=== PATIENT | female | born 1990 | race Caucasian/White ===

== ENCOUNTER 2016-04-20 18:45 | Emergency (ER) | payer OTHER ==
[~2016-04-20] VITALS: Ht 165.1 cm; Wt 62.4 kg
[~2016-04-20 18:45] MED LIST: MULT-506 PO
[2016-04-20 19:05] VITALS: TEMP 36.9; Ht 165.1 cm; Wt 62.4 kg
[2016-04-20] MEDS ORDERED: SODIUM CHLORIDE 0.9% 1000ML 1,000 ML IV STA (20:25)
[2016-04-20 20:42] LABS: URINE APPEARANCE CLEAR (CLEAR); URINE BILIRUBIN NEG (NEG); URINE COLOR YELLOW; URINE EPITHELIAL CELL AUTO >30 /lpf (0-5); URINE NITRITE NEG (NEG); URINE SPECIFIC GRAVITY 1.014 (1.000-1.030); UROBILINOGEN NEG (NEG); ZZUR CULT IF INDIC CLEAN CATCH YES
[2016-04-20 20:49] LABS: MANUAL MICROSCOPIC REQUIRED? NO; REVIEW REQ? NO
--- NOTE | 2016-04-20 20:57 | EMERGENCY ROOM VISIT NOTE ---
History Report prepared by Johana: Rosetta Bentley Under the Supervision of: Dr. Harman Goldman M.D. First contact with patient: 20:21 Chief Complaint: FLANK PAIN Stated Complaint: WEAK, LOW BACK PAIN, RT SIDE PAIN, HARD TO BREATH History of Present Illness The patient is a 25 year old female who presents to the Emergency Room with complaints of worsening RLQ abdominal pain for the past couple of days. She states that her pain has been present, but worsened today. She describes her current pain as sharp and rates it as a 6/10 in severity. The patient took a test last night that was positive. Her LNMP was March 14. She states "I feel crampy and pressure, like I'm getting my period." The patient is /A0. She is feeling nauseated. Her pain is worsened with palpation. She denies vaginal bleeding, urinary symptoms, pain or swelling in her legs, fever, vomiting, recent injury, and any previous abdominal surgeries. She has not taken anything for her pain. Source of History: patient Onset: a couple of days ago Position: abdomen (RLQ) Symptom Intensity: 6/10 Quality: sharp Timing: worsening Modifying Factors (Worsening): other (palpation) Associated Symptoms: + nausea, No fevers, No urinary symptoms, No vomiting Review of Systems See HPI for pertinent positives & negatives. A total of 10 systems reviewed and were otherwise negative. Past Medical & Surgical Medical Problems: (1) Normal labor Family History No pertinent history stated. Social History Smoking Status: Current Every Day Smoker Marital Status: in relationship Housing Status: lives with family Current/Historical Medications Scheduled Cephalexin Monohydrate (Keflex), 500 MG PO TID Allergies Coded Allergies: No Known Allergies (Unverified , 04/20/16) Physical Exam Vital Signs Date Time Temp Pulse Resp B/P Pulse Ox O2 Delivery O2 Flow Rate FiO2 04/20/16 22:49 96 18 109/75 99 04/20/16 19:05 36.9 119 18 131/81 99 Room Air Physical Exam GENERAL: Patient is well appearing and in no acute distress. HEENT: No acute trauma, normocephalic atraumatic, mucous membranes moist, no nasal congestion, no scleral icterus. NECK: No stridor, no adenopathy, no meningismus, trachea is midline. LUNGS: No dyspnea. Clear to auscultation and equal bilaterally. No wheeze, no rhonchi. HEART: Regular rate and rhythm. No murmurs, rubs, gallops appreciated. ABDOMEN: Soft, vague suprapubic tenderness to palpation, bowel sounds positive, no masses appreciated, no peritonitis. BACK: No midline tenderness, no CVA tenderness EXTREMITIES: Normal motion all extremities, no cyanosis, no edema. NEUROLOGIC: Alert and oriented, no acute motor or sensory deficits, no focal weakness, cranial nerves grossly intact. SKIN: No rash, no jaundice, no diaphoresis. Medical Decision & Procedures ER Provider Diagnostic Interpretation: Radiology results and stated below per my review and radiologist interpretation: PELVIC ULTRASOUND, TRANSABDOMINAL AND TRANSVAGINAL HISTORY: Pain pelvic pain, early COMPARISON: None. FINDINGS: Uterus: Retroverted configuration. There is small cystic density at the level of the uterine fundus. This potentially represents an early intrauterine gestational sac. It is too small to quantify viability. Estimated age based on gestational sac measurements is 5 weeks. Endometrial stripe: 12 mm Right ovary: 2.8 cm with normal vascular flow Left ovary: 3.1 cm with normal vascular flow Miscellaneous:No pelvic free fluid. IMPRESSION: 1. Retroflexed uterus.. 2. Small cystic region within the uterine fundus 3. This potentially represents a very early intrauterine gestational sac, although given the estimated 5 weeks gestational age is too small to evaluate viability. 4. This study should be repeated in one to 2 weeks to confirm viability 5. Otherwise negative study Electronically signed by: Michael Cadena M.D. 04/20/2016 9:56 PM Dictated Date/Time: 04/20/2016 9:53 PM Laboratory Results 04/20/16 20:36 Test 04/20/16 20:17 04/20/16 20:36 Urine Color YELLOW Urine Appearance CLEAR (CLEAR) Urine pH 6.0 (4.5-7.5) Urine Specific [place] 1.014 (1.000-1.030) Urine Protein NEG (NEG) Urine Glucose (UA) NEG (NEG) Urine Ketones NEG (NEG) Urine Occult Blood NEG (NEG) Urine Nitrite NEG (NEG) Urine Bilirubin NEG (NEG) Urine Urobilinogen NEG (NEG) Urine Leukocyte Esterase MODERATE (NEG) Urine WBC (Auto) 10-30 /hpf (0-5) Urine RBC (Auto) 10-30 /hpf (0-4) Urine Hyaline Casts (Auto) 5-10 /lpf (0-5) Urine Epithelial Cells (Auto) >30 /lpf (0-5) Urine Bacteria (Auto) 1+ (NEG) Urine Test POS (NEG) Red Blood Count 4.93 M/uL (4.2-5.4) Mean Corpuscular Volume 83.2 fL (80-100) Mean Corpuscular Hemoglobin 29.0 pg (25-34) Mean Corpuscular Hemoglobin Concent 34.9 g/dl (32-36) RDW Standard Deviation 41.4 fL (36.4-46.3) RDW Coefficient of Variation 13.7 % (11.5-14.5) Mean Platelet Volume 10.3 fL (7.4-10.4) Human Chorionic Gonadotropin, Quant 961 mIU/mL Laboratory results as reviewed by me. Medications Administered Medications (Trade) Dose Ordered Sig/Jaime Route Start Time Stop Time Status Last Admin Dose Admin Sodium Chloride (Nss 1000ml) 1,000 ml @ 999 mls/hr Q1H1M STAT IV 04/20/16 20:25 04/20/16 21:25 DC 04/20/16 20:25 999 MLS/HR Cephalexin Monohydrate (Keflex Cap) 500 mg NOW ONCE PO 04/20/16 22:45 04/20/16 22:46 DC 04/20/16 22:45 500 MG ED Course 2020: The patient was evaluated in room C2A. A complete history and physical exam was performed. 2024: NSS 1000 ml @ 999 mls/hr IV 2231: I reassessed the patient at this time. She is feeling better and resting comfortably. I discussed the results and treatment plan with the patient. I answered all pertaining questions that she had. She expressed understanding and verbalized agreement. The patient will be discharged home. Medical Decision Differential: Appendicitis, Ovarian Torsion, PID, Tubo-ovarian Abscess, Intrauterine , Ectopic , Endometriosis, amongst other pathologies entertained. 25 yr old female notes she is at most a few weeks and is having lower abdominal discomfort. Denies vaginal bleeding/discharge. No fevers, vomiting nor other symptoms. Very low HCG today. US with IUP though too early to categorize further. No evidence ectopic at this time. We discussed the possibility of this being early miscarriage. Discussed RTED immediately if severe pain, passing out, heavy bleeding, etc. She was instructed to follow up with OB in 3 days for repeat BHCG. Aware she can always return to ED if concerns. Stable and wishing to get home. She does not have appendicitis by examination. Symptoms not consistent with torsion nor PID. There is some questionable UTI thus with and discomfort will treat with keflex. Impression Primary Impression: Pelvic pain affecting in first trimester, antepartum Scribe Attestation The scribe's documentation has been prepared under my direction and personally reviewed by me in its entirety. I confirm that the note above accurately reflects all work, treatment, procedures, and medical decision making performed by me. Departure Information Dispostion Home / Self-Care Prescriptions Cephalexin Monohydrate (KEFLEX) 500 Mg Cap 500 MG PO TID, #15 CAP Prov: Harman Goldman M.D. 04/20/16 Referrals No Doctor, Assigned (PCP) Forms HOME CARE DOCUMENTATION FORM, IMPORTANT VISIT INFORMATION Patient Instructions My [facility] Additional Instructions Your US showed a very early . It is too early to tell whether this is a miscarriage or just very early . You will need repeat Blood Testing in the next 3-4 days to evaluate whether this is going up. If you have bleeding, increased pain you may be having a miscarriage. Return immediately if you have severe pain, heavy bleeding, passing out or other concerns. We are here to help. Call you primary provider tomorrow to set up further testing.
[2016-04-20 21:27] LABS: MEAN CELL VOLUME 83.2 fL (80-100); MEAN CORPUSCULAR HGB CONC 34.9 g/dl (32-36); MEAN PLATELET VOLUME 10.3 fL (7.4-10.4); PLATELET COUNT 281 K/uL (130-400); RED BLOOD COUNT 4.93 M/uL (4.2-5.4); WHITE BLOOD COUNT 11.52 K/uL (4.8-10.8)
--- NOTE | 2016-04-20 21:57 | DIAGNOSTIC IMAGING REPORT ---
PELVIC ULTRASOUND, TRANSABDOMINAL AND TRANSVAGINAL HISTORY: Pain pelvic pain, early COMPARISON: None. FINDINGS: Uterus: Retroverted configuration. There is small cystic density at the level of the uterine fundus. This potentially represents an early intrauterine gestational sac. It is too small to quantify viability. Estimated age based on gestational sac measurements is 5 weeks. Endometrial stripe: 12 mm Right ovary: 2.8 cm with normal vascular flow Left ovary: 3.1 cm with normal vascular flow Miscellaneous:No pelvic free fluid. IMPRESSION: 1. Retroflexed uterus.. 2. Small cystic region within the uterine fundus 3. This potentially represents a very early intrauterine gestational sac, although given the estimated 5 weeks gestational age is too small to evaluate viability. 4. This study should be repeated in one to 2 weeks to confirm viability 5. Otherwise negative study Electronically signed by: Michael Cadena M.D. 04/20/2016 9:56 PM Dictated Date/Time: 04/20/2016 9:53 PM
[2016-04-20] MEDS ORDERED: CEPH500C2 PO (22:36)
[2016-04-20] MEDS ORDERED: CEPHALEXIN MONOHYDRATE 250 MG CAP PO ONE (22:45)
[2016-04-20 22:49] VITALS: BP 109/75; PULSE 96; O2SAT 99
--- NOTE | 2016-04-23 18:23 | Pharmacy Progress Note ---
ED Pharmacist Culture FollowUp Date of Service: Apr 23, 2016. Called patient regarding Gardnerella in urine culture. Patient reports having had an appointment with her GRAIN CLEANER AND TRANSFER OPERATOR today. They did obtain a urine sample and per Serg, planned to culture the sample. No further intervention required at this time. Case discussed with Dr. Anderson.
== END 2016-04-20 22:50 | disposition home or self-care (01) ==
LOC: C.EDB 18:46 → C.EDC 22:50
DX: O26.891 Other specified pregnancy related conditions, first trimester (principal); O99.331 Smoking (tobacco) complicating pregnancy, first trimester; R10.2 Pelvic and perineal pain; F17.200 Nicotine dependence, unspecified, uncomplicated; Z3A.01 Less than 8 weeks gestation of pregnancy

== ENCOUNTER → 2016-04-23 | Outpatient (CLI) | payer OTHER ==
[~2016-04-23] MED LIST changes: +CEPH500C2 PO; -MULT-506 PO
== END ==
LOC: C.LAB1850 07:48
PROVIDERS: ATTEND Obstetrics & Gynecology
DX: O26.899 Other specified pregnancy related conditions, unspecified trimester (principal)

== ENCOUNTER → 2016-04-23 | Outpatient (CLI) | payer OTHER ==
[~2016-04-23] MED LIST changes: +MULT-506 PO
[2016-04-23 18:37] LABS: URINE APPEARANCE CLEAR (CLEAR); URINE BILIRUBIN NEG (NEG); URINE COLOR YELLOW; URINE EPITHELIAL CELL AUTO >30 /lpf (0-5); URINE NITRITE NEG (NEG); URINE SPECIFIC GRAVITY 1.024 (1.000-1.030); UROBILINOGEN POS (NEG)
[2016-04-23 18:42] LABS: MANUAL MICROSCOPIC REQUIRED? NO; REVIEW REQ? NO
== END | disposition home or self-care (01) ==
LOC: C.LABSPEC 17:26
PROVIDERS: ATTEND Obstetrics & Gynecology
DX: O26.899 Other specified pregnancy related conditions, unspecified trimester (principal)

== ENCOUNTER → 2016-05-18 | Outpatient (CLI) | payer OTHER ==
[~2016-05-18] MED LIST changes: -MULT-506 PO
[2016-05-18 18:26] LABS: URINE APPEARANCE CLEAR (CLEAR); URINE BILIRUBIN NEG (NEG); URINE COLOR YELLOW; URINE EPITHELIAL CELL AUTO >30 /lpf (0-5); URINE NITRITE NEG (NEG); URINE PH 6.5 (4.5-7.5); UROBILINOGEN NEG (NEG)
[2016-05-18 18:27] LABS: MANUAL MICROSCOPIC REQUIRED? NO; REVIEW REQ? NO
== END | disposition home or self-care (01) ==
LOC: C.LABSPEC 16:53
PROVIDERS: ATTEND Obstetrics & Gynecology
DX: Z34.83 Encounter for supervision of other normal pregnancy, third trimester (principal)

== ENCOUNTER → 2016-05-26 | Outpatient (CLI) | payer OTHER ==
[2016-05-29 11:40] LABS: CHLAMYDIA TRACH RNA*** NOT DETECTED (NOT DETECTED); GC (NEIS GONORRHOEAE)RNA** NOT DETECTED (NOT DETECTED)
== END | disposition home or self-care (01) ==
LOC: C.LABSPEC 14:10
PROVIDERS: ATTEND Obstetrics & Gynecology
DX: Z34.91 Encounter for supervision of normal pregnancy, unspecified, first trimester (principal)

== ENCOUNTER → 2016-06-09 | Outpatient (CLI) | payer OTHER ==
[2016-06-09 16:27] LABS: BASO % 0.1 %; BASO ABS # 0.01 K/uL (0-0.2); COMPLETE YES; EOS % 0.6 %; HEMATOCRIT 37.7 % (37-47); IG% 0.3 %; LYMPH % 26.1 %; LYMPH ABS # 2.07 K/uL (1.2-3.4); MEAN CELL VOLUME 81.8 fL (80-100); MEAN CORPUSCULAR HEMOGLOBIN 29.3 pg (25-34); MEAN CORPUSCULAR HGB CONC 35.8 g/dl (32-36); MEAN PLATELET VOLUME 9.9 fL (7.4-10.4); MONO % 3.3 %; NEUT % 69.6 %; PLATELET COUNT 263 K/uL (130-400); RED BLOOD COUNT 4.61 M/uL (4.2-5.4); WHITE BLOOD COUNT 7.93 K/uL (4.8-10.8)
== END | disposition home or self-care (01) ==
LOC: C.LAB1850 15:40
PROVIDERS: ATTEND Obstetrics & Gynecology
DX: Z34.91 Encounter for supervision of normal pregnancy, unspecified, first trimester (principal)

== ENCOUNTER → 2016-07-07 | Outpatient (CLI) | payer OTHER ==
[2016-07-07 18:09] LABS: GTGD 50 Grams
== END | disposition home or self-care (01) ==
LOC: C.LAB1850 15:30
PROVIDERS: ATTEND Obstetrics & Gynecology
DX: Z34.82 Encounter for supervision of other normal pregnancy, second trimester (principal)

== ENCOUNTER → 2016-09-29 | Outpatient (CLI) | payer OTHER ==
[2016-09-29 16:37] LABS: HEMATOCRIT 32.9 % (37-47)
[2016-09-29 16:56] LABS: GTGD 50 Grams
== END | disposition home or self-care (01) ==
LOC: C.LAB1850 15:50
PROVIDERS: ATTEND Obstetrics & Gynecology
DX: Z34.82 Encounter for supervision of other normal pregnancy, second trimester (principal)

== ENCOUNTER → 2016-09-29 | Outpatient (CLI) | payer OTHER ==
[2016-09-29 18:17] LABS: URINE APPEARANCE CLOUDY (CLEAR); URINE BILIRUBIN NEG (NEG); URINE COLOR YELLOW; URINE EPITHELIAL CELL AUTO >30 /lpf (0-5); URINE NITRITE NEG (NEG); URINE SPECIFIC GRAVITY 1.026 (1.000-1.030); UROBILINOGEN NEG (NEG)
[2016-09-29 18:24] LABS: MANUAL MICROSCOPIC REQUIRED? NO; REVIEW REQ? YES
== END | disposition home or self-care (01) ==
LOC: C.LABSPEC 17:34
PROVIDERS: ATTEND Obstetrics & Gynecology
DX: Z34.82 Encounter for supervision of other normal pregnancy, second trimester (principal)

== ENCOUNTER → 2016-11-24 | Outpatient (CLI) | payer OTHER | END | disposition home or self-care (01) | LOC: C.LABSPEC 16:00 | PROVIDERS: ATTEND Obstetrics & Gynecology | DX: Z34.83 Encounter for supervision of other normal pregnancy, third trimester (principal) ==

== ENCOUNTER 2016-12-07 19:45 | Emergency (ER) | payer OTHER ==
[~2016-12-07] VITALS: Ht 165.1 cm; Wt 68.6 kg
[2016-12-07 19:55] VITALS: TEMP 37; Ht 165.1 cm; Wt 68.6 kg
--- NOTE | 2016-12-07 20:17 | EMERGENCY ROOM VISIT NOTE ---
History Report prepared by Johana: Daniel Talley Under the Supervision of: Dr. John Wayne M.D. First contact with patient: 20:06 Chief Complaint: FLANK PAIN Stated Complaint: SIDE BACK PAIN, 38 WKS PREG-PER LD EVAL IN ER History of Present Illness The patient is a 26 year old female who presents to the Emergency Room with complaints of constant right sided flank pain that started at 0100. She rates her pain as a 7/10 in severity. She states that her pain is worsened with sitting up and relieved with laying down. The patient also reports she is have mid lower back pain. The patient states that she feels as if she is having contractions at times, but is unsure. The patient does not think that her water broke. She reports she is 38 weeks and reports that this is her 3rd time . The patient states that her last ultrasound was two weeks ago and the baby was low. The patient states that she has been urinating frequently, but admits she has been drinking a lot of fluids. She states that she has a history of a kidney stone, which she admits is similar to her current symptoms. Source of History: patient Onset: 0100 Position: other (right flank) Symptom Intensity: 7/10 Timing: constant Associated Symptoms: + back pain Review of Systems All systems have been listed, reviewed, and are negative other than those previously mentioned. Please see Additional Medical History Sheet. Past Medical & Surgical Medical Problems: (1) Normal labor (2) Uterine contractions Family History Cancer Social History Smoking Status: Never Smoker Smokeless Tobacco Use: No Alcohol Use: none Drug Use: none Marital Status: in relationship Housing Status: lives with family Occupation Status: unemployed Current/Historical Medications No Active Prescriptions or Reported Meds Allergies Coded Allergies: No Known Allergies (Unverified , 12/07/16) Physical Exam Vital Signs Date Time Temp Pulse Resp B/P (MAP) Pulse Ox O2 Delivery O2 Flow Rate FiO2 12/07/16 22:29 102 18 113/67 100 Room Air 12/07/16 21:34 108 18 122/76 98 Room Air 12/07/16 19:55 37.0 113 22 135/83 98 Room Air Physical Exam GENERAL: Patient awake, alert, oriented x 3. Patient follows commands. Patient does not appear toxic. Patient is adequately hydrated and well- nourished. Patient is in mild distress. SKIN: No erythema, pallor, cyanosis or rash HEENT: Normal head, pupils equal, reactive to light and accommodation. Ears normal. Oral cavity and posterior pharynx appear normal. Neck: Without adenopathy, no neck vein distention. LUNGS: Clear to auscultation. No wheezes, no rales, no rhonchi. HEART: No murmurs. No gallops. No rubs ABDOMEN: No masses, no rebound, no hepatomegaly or splenomegaly. BACK: Slight tenderness to right CVA area. No bruising or other signs of trauma. EXTREMITIES: No signs of trauma. No pedal or pretibial edema. No calf or thigh tenderness. NEUROLOGIC: Cranial nerves II-XII within normal limits. No gross motor sensory function deficits. Medical Decision & Procedures ER Provider Diagnostic Interpretation: Radiology results as stated below per my review and radiologist interpretation: RENAL ULTRASOUND HISTORY: right flank pain 38 weeks preg past kidney stone COMPARISON: Renal ultrasound 04/13/2013. FINDINGS: Right kidney: 12.0 cm. Mild hydronephrosis. Normal corticomedullary differentiation and cortical thickness. Left kidney: 12.2 cm. No hydronephrosis. Normal corticomedullary differentiation and cortical thickness. Bladder: Decompressed and not well visualized. Miscellaneous: heart rate was 150 bpm. IMPRESSION: 1. Mild right hydronephrosis. 2. Normal left kidney. 3. No renal stones identified. 4. heart rate was 150 bpm. Electronically signed by: Mckinley Hernadez M.D. 12/07/2016 9:30 PM Dictated Date/Time: 12/07/2016 9:29 PM Laboratory Results 12/07/16 20:33 12/07/16 20:33 Test 12/07/16 20:30 12/07/16 20:33 Urine Color YELLOW Urine Appearance CLOUDY (CLEAR) Urine pH 6.5 (4.5-7.5) Urine Specific [place] 1.020 (1.000-1.030) Urine Protein TRACE (NEG) Urine Glucose (UA) TRACE (NEG) Urine Ketones 1+ (NEG) Urine Occult Blood NEG (NEG) Urine Nitrite NEG (NEG) Urine Bilirubin NEG (NEG) Urine Urobilinogen POS (NEG) Urine Leukocyte Esterase LARGE (NEG) Urine WBC (Auto) >30 /hpf (0-5) Urine RBC (Auto) 0-4 /hpf (0-4) Urine Hyaline Casts (Auto) 1-5 /lpf (0-5) Urine Epithelial Cells (Auto) >30 /lpf (0-5) Urine Bacteria (Auto) 2+ (NEG) Red Blood Count 3.95 M/uL (4.2-5.4) Mean Corpuscular Volume 81.5 fL (80-100) Mean Corpuscular Hemoglobin 26.6 pg (25-34) Mean Corpuscular Hemoglobin Concent 32.6 g/dl (32-36) RDW Standard Deviation 41.0 fL (36.4-46.3) RDW Coefficient of Variation 13.7 % (11.5-14.5) Mean Platelet Volume 9.8 fL (7.4-10.4) Anion Gap 8.0 mmol/L (3-11) Est Creatinine Clear Calc Drug Dose 140.7 ml/min Estimated GFR () 147.9 Estimated GFR (Non- 127.6 BUN/Creatinine Ratio 6.5 (10-20) Calcium Level 9.0 mg/dl (8.5-10.1) Laboratory results as stated above per my review. ED Course 2007: Past medical records reviewed. The patient was evaluated in room C03. A complete history and physical examination was performed. 2224: I reevaluated the patient and updated her on her results. She told me she feels as if she is having contractions. I discussed her treatment plan and she agrees. 2230: I discussed the patient's case with Nas [facility] [employer]. She understands the patient's condition and agrees to accept the patient. The patient will be further evaluated. Medical Decision Nurses notes reviewed. Medical history sheet reviewed. Differential diagnosis includes but is not limited to: renal colic, , UTI, pyelonephritis. The patient is here with right flank pain similar to what she has experienced in the past with a kidney stone. She is currently 38 weeks and initially denied any contractions. Urinalysis ensued. The patient does have significant white cells in her urine. Ultrasound does not reveal a stone. The patient does have mild right hydronephrosis. While here the patient developed contractions. Therefore she was sent upstairs for monitoring. I discussed care with the clinical veterinarian who will start antibiotics. Medication Reconcilliation Current Medication List: was personally reviewed by me Blood Pressure Screening Patient's blood pressure: Normal blood pressure Consults Time Called: 2229 Consulting Physician: Dr. Lovell [facility] Returned Call: 2229 I discussed the patient's case with Nas [facility] [employer]. She understands the patient's condition and agrees to accept the patient. The patient will be further evaluated. Impression Primary Impression: Pyelonephritis Additional Impression: Scribe Attestation The scribe's documentation has been prepared under my direction and personally reviewed by me in its entirety. I confirm that the note above accurately reflects all work, treatment, procedures, and medical decision making performed by me. Departure Information Dispostion Being Evaluated By Hospitalist Prescriptions No Active Prescriptions or Reported Meds Referrals No Doctor, Assigned (PCP) Patient Instructions My [facility] Problem Qualifiers
[2016-12-07 20:48] LABS: HEMATOCRIT 32.2 % (37-47); MEAN CELL VOLUME 81.5 fL (80-100); MEAN CORPUSCULAR HEMOGLOBIN 26.6 pg (25-34); MEAN CORPUSCULAR HGB CONC 32.6 g/dl (32-36); MEAN PLATELET VOLUME 9.8 fL (7.4-10.4); PLATELET COUNT 224 K/uL (130-400); RED BLOOD COUNT 3.95 M/uL (4.2-5.4); WHITE BLOOD COUNT 13.84 K/uL (4.8-10.8)
[2016-12-07 20:59] LABS: URINE APPEARANCE CLOUDY (CLEAR); URINE BILIRUBIN NEG (NEG); URINE COLOR YELLOW; URINE EPITHELIAL CELL AUTO >30 /lpf (0-5); URINE NITRITE NEG (NEG); URINE PH 6.5 (4.5-7.5); UROBILINOGEN POS (NEG); ZZUR CULT IF INDIC CLEAN CATCH YES
[2016-12-07 21:02] LABS: MANUAL MICROSCOPIC REQUIRED? NO; REVIEW REQ? YES
[2016-12-07 21:07] LABS: BUN/CREATININE RATIO 6.5 (10-20); CREATININE 0.6 mg/dl (0.60-1.20); POTASSIUM 3.3 mmol/L (3.5-5.1)
--- NOTE | 2016-12-07 21:31 | DIAGNOSTIC IMAGING REPORT ---
RENAL ULTRASOUND HISTORY: right flank pain 38 weeks preg past kidney stone COMPARISON: Renal ultrasound 04/13/2013. FINDINGS: Right kidney: 12.0 cm. Mild hydronephrosis. Normal corticomedullary differentiation and cortical thickness. Left kidney: 12.2 cm. No hydronephrosis. Normal corticomedullary differentiation and cortical thickness. Bladder: Decompressed and not well visualized. Miscellaneous: heart rate was 150 bpm. IMPRESSION: 1. Mild right hydronephrosis. 2. Normal left kidney. 3. No renal stones identified. 4. heart rate was 150 bpm. Electronically signed by: Mckinley Hernadez M.D. 12/07/2016 9:30 PM Dictated Date/Time: 12/07/2016 9:29 PM
[2016-12-07 22:29] VITALS: BP 113/67; PULSE 102; O2SAT 100
== END 2016-12-07 22:30 | disposition home or self-care (01) ==
LOC: C.EDB 19:46 → C.EDC 22:30
DX: O26.833 Pregnancy related renal disease, third trimester (principal); N12 Tubulo-interstitial nephritis, not specified as acute or chronic; R10.9 Unspecified abdominal pain

== ENCOUNTER 2016-12-07 22:40 | Inpatient (IN) | payer OTHER ==
[~2016-12-07] VITALS: Ht 167.6 cm; Wt 68.5 kg
[2016-12-08] MEDS ORDERED: LACTATED RINGER'S 1000ML 1,000 ML IV PRN (01:29)
[2016-12-08] MEDS ORDERED: LACTATED RINGER'S 1000ML 1,000 ML IV SCH ×2 (01:29→07:22)
[2016-12-08] MEDS ORDERED: EpHEDrine SULFATE INJ 50 MG/ML AMP ONE (01:49)
[2016-12-08] MEDS ORDERED: FENTANYL CITRATE INJ 50 MCG/1 ML 2 ML VIAL ONE (01:49)
[2016-12-08] MEDS ORDERED: BUPIVACAINE 0.25% 30 ML VIAL ONE (01:49)
[2016-12-08 01:57] LABS: HEMATOCRIT 29.6 % (37-47); MEAN CELL VOLUME 82.2 fL (80-100); MEAN CORPUSCULAR HEMOGLOBIN 28.1 pg (25-34); MEAN CORPUSCULAR HGB CONC 34.1 g/dl (32-36); MEAN PLATELET VOLUME 9.7 fL (7.4-10.4); PLATELET COUNT 187 K/uL (130-400); WHITE BLOOD COUNT 12.57 K/uL (4.8-10.8)
[2016-12-08] MEDS ORDERED: FENTANYL 2MCG/ML ROPIV 1.25MG/ML 100ML BAG EPI ONE (02:14)
[2016-12-08 02:30] VITALS: Ht 167.6 cm; Wt 68.5 kg
[2016-12-08] MEDS ORDERED: LACTATED RINGER'S 1000ML 500 ML IV PRN ×2 (03:16→03:35)
[2016-12-08] MEDS ORDERED: NALOXONE HCL INJ 1 MG in SODIUM CHLORIDE 0.9% 1000ML 1,000 ML IV PRN (03:16)
[2016-12-08] MEDS ORDERED: DiphenhydrAMINE HCL 50 MG/ML VIAL IV PRN (03:30)
[2016-12-08] MEDS ORDERED: NALBUPHINE HCL INJ 10 MG/ML AMP IV PRN (03:30)
[2016-12-08] MEDS ORDERED: PROMETHAZINE HCL INJ 6.25 MG in SODIUM CHLORIDE 0.9% 50ML 50 ML IV PRN (03:30)
[2016-12-08] MEDS ORDERED: FENTANYL 2MCG/ML ROPIV 1.25MG/ML 100ML BAG EPI PRN (03:30)
[2016-12-08] MEDS ORDERED: ONDANSETRON INJ 2 MG/ML 2 ML VIAL IV PRN (03:30)
[2016-12-08] MEDS ORDERED: EpHEDrine SULFATE INJ 50 MG/ML AMP IV PRN (03:30)
[2016-12-08] MEDS ORDERED: NALOXONE HCL INJ 0.4 MG/1 ML VIAL/CARP IV PRN (03:30)
[2016-12-08] MEDS ORDERED: OXYTOCIN 30 UNITS/500ML NSS IV PRN ×2 (03:45→07:30)
[2016-12-08] MEDS ORDERED: BENZOCAINE 20% AER SPR 82.5 GM CAN EXT PRN (07:30)
[2016-12-08] MEDS ORDERED: SUPERCREAM 0.870 % 15GM JAR EXT PRN (07:30)
[2016-12-08] MEDS ORDERED: DIPHTHERIA/TETANUS/PERTUSSIS 0.5 ML SYR/VIAL IM. ONE (07:30)
[2016-12-08] MEDS ORDERED: ACETAMINOPHEN 325 MG TAB PO PRN (07:30)
[2016-12-08] MEDS ORDERED: OXYCODONE/ACETAMINOPHEN 5-325 TAB PO PRN (07:30)
[2016-12-08] MEDS ORDERED: HYDROCORTISONE ACETATE 25 MG SUPP PR PRN (07:30)
[2016-12-08] MEDS ORDERED: LANOLIN OINT EXT PRN ×2 (07:30)
--- NOTE | 2016-12-08 07:34 | Anesthesia Procedure Note ---
Anesthesia Epidural Removal Nt Date & Time Dec 08, 2016 at 07:34 Notes Mental Status: alert / awake / arousable, participated in evaluation Nausea / Vomiting: adequately controlled Pain: adequately controlled Airway Patency, RR, SpO2: stable & adequate BP & HR: stable & adequate Hydration State: stable & adequate Neuraxial Anesthesia: was administered Anesthetic Complications: no major complications apparent, pt satisfied with anesthetic care Epidural: removed without complications, with tip intact
--- NOTE | 2016-12-08 07:39 | DELIVERY SUMMARY ---
DATE OF OPERATION: 12/08/2016 PREOPERATIVE DIAGNOSIS: 1. Moralez intrauterine at 38 3/7 weeks. 2. Onset of labor. 3. Group B strep negative. POSTOPERATIVE DIAGNOSIS: Same. PROCEDURE: Spontaneous vaginal delivery. SURGEON: Dr. Lovell. ASSIST: None. ESTIMATED BLOOD LOSS: 250 mL. COMPLICATIONS: None. DISPOSITION: Stable in labor and delivery. DESCRIPTION: Serg Boyd is a 26-year-old -0-0-2 who presented in labor. She was provided with an epidural for pain management and then artificial rupture and Pitocin for augmentation of labor. She reached to complete dilation with an urge to push and was coached through her second stage of labor which was very brief. She was able to bring the head to delivery with her first set of pushes followed by both shoulders and the remainder of the infant with no difficulty whatsoever. The was placed on the maternal abdomen where it was noted to be vigorous moving all four extremities equally. The cord was doubly clamped and cut by the father of the baby. Cord blood was collected. The placenta was spontaneously delivered and noted to be intact with a 3-vessel cord. The cervix, vagina and perineum were examined and there were no lacerations requiring repair. The patient is currently in stable condition in her delivery room having tolerated her procedure well. I attest to the content of the Intraoperative Record and any orders documented therein. Any exception s are noted below.
[2016-12-08] MEDS: DOCUSATE SODIUM 100 MG CAP PO SCH ×2 (08:26→19:40)
[2016-12-08] MEDS: PRENATAL VITAMIN TAB PO SCH (08:27)
[2016-12-08 09:10] VITALS: BP 118/61; PULSE 82; TEMP 36.8
[2016-12-08 12:30] VITALS: BP 113/72; PULSE 76; TEMP 36.7
[2016-12-08] MEDS: IBUPROFEN 600 MG TAB PO PRN ×2 (12:36→18:15)
[2016-12-08 15:30] VITALS: BP 110/63; PULSE 60; TEMP 36.6; O2SAT 98
[2016-12-08 19:45] VITALS: BP 118/78; PULSE 77; TEMP 36.8; O2SAT 98
[2016-12-08 22:50] VITALS: BP 112/65; PULSE 66; TEMP 36.5; O2SAT 99
[2016-12-09 03:35] VITALS: BP 112/66; PULSE 66; TEMP 36.4; O2SAT 99
[2016-12-09] MEDS: IBUPROFEN 600 MG TAB PO PRN (03:35)
[2016-12-09 07:28] LABS: HEMATOCRIT 33.3 % (37-47)
--- NOTE | 2016-12-09 07:31 | Progress Note ---
Subjective Dec 09, 2016. Subjective conversation w/ patient, physical exam, chart review, lab review Ambulation: ambulating normally Voiding: no voiding problems Passing Gas: Yes Diet Tolerance: Regular Diet Lochia: Small Feeding Type: Bottle Feeding Pain: Says is "sore", denies much pain or cramping Comment: Found pt resting comfortably, denies any acute concerns. Review of Systems Constitutional: No fever, No chills Respiratory: No cough, No shortness of breath Cardiac: No chest pain, No edema Abdomen: No nausea, No vomiting, No diarrhea Female : No dysuria Objective Vital Signs Date Time Temp Pulse Resp B/P (MAP) Pulse Ox O2 Delivery O2 Flow Rate FiO2 12/09/16 03:35 36.4 66 16 112/66 (81) 99 Room Air 12/08/16 22:50 Room Air 12/08/16 22:50 36.5 66 16 112/65 (81) 99 Room Air 12/08/16 19:45 36.8 77 16 118/78 (91) 98 Room Air 12/08/16 19:45 Room Air 12/08/16 15:30 36.6 60 16 110/63 (79) Room Air 12/08/16 15:30 98 Room Air 12/08/16 12:30 36.7 76 18 113/72 (86) Room Air 12/08/16 09:10 36.8 82 18 118/61 (80) Room Air 12/08/16 09:10 Room Air Physical Exam General Appearance: WELL-APPEARING, WD/WN, NO APPARENT DISTRESS Respiratory/Chest: lungs clear, normal breath sounds, no respiratory distress Cardiovascular: regular rate, rhythm, no edema, no gallop Abdomen: normal bowel sounds, non tender, soft Fundus: Firm, Non-Tender, Relation to Umbilicus (approx one down) Extremities: non-tender, no pedal edema, no calf tenderness Laboratory Results Last 24 Hours Test 12/09/16 06:15 Hemoglobin 10.8 g/dL Hematocrit 33.3 % Assessment and Plan Post- Day#: 1 Continue Routine Care: 26F s/p , now PPD #1. - Blood type A positive. GBS negative. Rubella immune. - Vital signs reviewed and stable. - Pain controlled with motrin. - No leg swelling or tenderness on calf palpation. Encourage ambulation. - Encourage breast feeding. - Hemoglobin pre-delivery 10.1, post-delivery 10.8. Bleeding has improved. Continue to monitor clinically. - Continue routine post-vaginal delivery care. Discharge precautions reviewed with pt. - Pt agreed with above plan, all current questions answered. Oliver Sosa MD, PGY1 Lung Gun Operator Physician Supervision Note: I interviewed and examined the patient. Discussed with Dr. Sosa and agree with findings and plan as documented in the note. Any exceptions or clarifications are listed here: Doing well. Plan d/c. Instructions given. Documented By: Nicky Castillo Resident Tracking Resident Involvement: Resident Care Provided Care Provided: OB Delivery (OB rounds)
--- NOTE | 2016-12-09 07:33 | Discharge Instructions ---
Discharge Instructions Date of Service Dec 09, 2016. Admission Reason for Admission: LABOR Discharge Discharge Diagnosis / Problem: Recovery from vaginal delivery Discharge Goals Goal(s): Routine recovery after delivery Medications Continue Dispensed Medications: supercream, dermaplast, tucks, lansinoh Activity Recommendations Activity Limitations: per Instructions/Follow-up section . Instructions / Follow-Up Instructions / Follow-Up ACTIVITY RECOMMENDATIONS: * Gradual return to full activity over the next 2-3 weeks. * No lifting - nothing heavier than baby over the next 2-3 weeks. * Do not engage in vigorous exercise, sexual activity or sports until cleared by your physician. * Do not drive or operate any motorized equipment until cleared by your physician. * You may shower/bathe daily. MEDICATIONS: For discomfort or pain, you may use Acetaminophen (Tylenol), Ibuprofen (Advil), or Naproxen (Aleve) following the package directions. For constipation you may use Colace following the package directions. BREAST CARE: If you are not breast feeding: * Wear a supportive bra 24 hours a day for one to two weeks. * Avoid stimulating your breasts and nipples as much as possible during the first few weeks after delivery. * When taking a shower, have the warm water hit your back, not breasts. * When your breasts feel full, apply ice packs. Usually three to four times a day helps ease the discomfort. * Take a mild pain medication (Tylenol / Motrin) when you are uncomfortable. If breast feeding: * Use breast milk to lubricate nipples. Lansinoh cream may be used for sore nipples. You do not need to remove cream prior to breast feeding. If using a different brand of cream, check the label for directions regarding removal of cream prior to nursing. * Wear a supportive bra. * If having problems with breasts or breast feeding, call a informatics consultant or your health care provider. EPISIOTOMY CARE: After delivery, if you have an episiotomy (stitches), the following steps will ease discomfort and aid healing. * For the first 24 hours after delivery, place ice packs next to your episiotomy to help reduce swelling. * After the first 24 hour-period, sitz baths, either portable or in the tub, are suggested. A shower with a shower arm sprayed over the episiotomy may be comforting. * Arlette care should be done after each voiding and bowel movement. Squirt warm water from a plastic bottle over the perineum (region of the body between the anus and urinary opening) and pat dry. * Use Dermoplast to ease discomfort. Shake container. [place] directly over the episiotomy. Place a Tucks on a clean sanitary pad next to your episiotomy. SPECIAL CARE INSTRUCTIONS: When you are discharged from the hospital, it is important for you to follow the instructions listed below: * During the first week at home, you should be able to care for yourself and your baby. In addition, the usual light household activities are encouraged. * Limit your activities to the way you feel. Do not try to clean the house or move furniture. Be sensible. * If you actively engage in sports and have done so up until the time of your delivery, you may resume these activities as soon as you feel able. This may take up to one month or even longer. Use good judgment. * Continue to take your vitamins for at least six weeks after the of your baby. * Your diet need not be limited unless you were on a special diet before your delivery. Breast-feeding mothers need around 2500 calories per day and at least 64-80 ounces of fluid per day (8 to 10 glasses). * You should eat foods from the four major food groups. Crash diets or fad diets are to be avoided. Eating lean meats, fresh fruits and vegetables, low-fat dairy products, high fiber foods and a regular exercise program, will help you get back to your pre- weight without putting your health at risk. * Constipation is sometimes a problem after delivery. Take a mild laxative as needed. If breast feeding, Milk of Magnesia is acceptable to use. You may use a suppository or Fleets enema if no episiotomy. * A daily shower or tub bath is suggested. Be sure to thoroughly and gently dry the perineum. * A bloody vaginal discharge will usually continue until around four weeks post . A small amount of bleeding may continue for as long as six weeks. Vaginal discharge changes from the bright red bleeding after delivery to pink then brownish and finally yellowish-pink before becoming white and disappearing. * Bleeding may increase with activity. Your first period may come in 4-8 weeks. If you are breast feeding, your period may be delayed even longer. * Lilly (sex) can begin whenever both you and your partner feel comfortable and do not have any form of genital infection. It is recommended that you wait at least six weeks for internal and external healing to occur. If you have questions, please talk to your health care practitioner. A condom should be used to prevent infection and . * Foreplay, gentle intercourse and lubrication is very important the first several times to prevent pain. A water-based lubricant such as K-Y jelly or Astroglide may be used. * If you have RH negative blood and your baby is RH positive, you will receive RHOGAM by injection prior to discharge. The nurse will give you a card to keep with you that has the date and place that you received RHOGAM after delivery. * During your care, you had a Rubella screen done to check for the presence of rubella antibodies in your blood. If your test was negative, you will receive a Rubella vaccine prior to discharge. This vaccine may cause a fever, soreness at the injection site and flu-like symptoms. If these symptoms persist, notify your health care practitioner. is not advised for one month after a Rubella vaccine. * Verbalizes understanding of car seat law as reviewed with patient nursing. * Car Seat hand-out given and reviewed with patient by nursing. * Shaken baby information reviewed with patient by nursing. Call you doctor if: * Heavy bleeding (saturating several pads an hour) or passing clots the size of your fist. * A fever >101 degrees F (38.3 degrees C) on two occasions four hours apart and /or chills. * Unusual pain in the pelvic or vaginal areas. * "Baby Blues" lasting longer than two weeks. If you have any questions or concerns, call your health care practitioner at . FOLLOW UP VISIT: * Please call the office at to schedule a 6 week examination. It is important you keep this appointment. It is important for you to make arrangements for either yearly or twice yearly check-ups thereafter. Current Hospital Diet Patient's current hospital diet: Regular Diet Discharge Diet Recommended Diet: Regular OB Diet Pending Studies Studies pending at discharge: no Medical Emergencies . Who to Call and When: Medical Emergencies: If at any time you feel your situation is an emergency, please call 911 immediately. . Non-Emergent Contact Non-Emergency issues call your: [employer] . . "Provider Documentation" section prepared by Oliver Sosa. . VTE Core Measure Inpt VTE Proph given/why not?: Treatment not indicated
[2016-12-09] MEDS: PRENATAL VITAMIN TAB PO SCH (07:58)
[2016-12-09] MEDS: DOCUSATE SODIUM 100 MG CAP PO SCH (07:58)
[2016-12-09 08:00] VITALS: BP 118/79; PULSE 70; TEMP 36.4; O2SAT 99
[2016-12-09 14:10] VITALS: BP_DIAS 79; PULSE 70; TEMP 36.4
== END 2016-12-09 14:20 | disposition home or self-care (01) | DRG 775 ==
LOC: C.LD 22:40 → C.OPB 22:40 → C.LD 12-08 01:29 → C.OBG 12-08 09:28
PROVIDERS: ADMIT Obstetrics & Gynecology; ATTEND Obstetrics & Gynecology
PROC: 10E0XZZ Delivery of Products of Conception, External Approach (ICD-10-PCS; principal; 2016-12-08)
PROC: 10907ZC Drainage of Amniotic Fluid, Therapeutic from Products of Conception, Via Natural or Artificial Opening (ICD-10-PCS; principal; 2016-12-08)
DX: O80 Encounter for full-term uncomplicated delivery (principal); Z3A.38 38 weeks gestation of pregnancy; Z37.0 Single live birth